=== PATIENT | female | born 1960 | race Caucasian/White ===

== ENCOUNTER 2021-03-24 20:30 | Inpatient (IN) ==
[2021-03-24] MEDS ORDERED: DEXAMETHASONE SOD INJ 4 MG/ML VIAL IV STA (20:58)
[2021-03-24 21:11] LABS: Basophils # (auto) 0.01 K/uL (0-0.2); Basophils % (auto) 0.2 %; Hematocrit (blood only) 42.1 % (37-47); Hemoglobin 14.5 g/dL (12.0-16.0); Immature Granulocytes # (auto) 0.07 K/uL (0.00-0.02); Immature Granulocytes % (auto) 1.1 %; Lymphocytes # (auto) 0.85 K/uL (1.2-3.4); Lymphocytes % (auto) 13.2 %; Mean Corpuscular Hemoglobin 30.5 pg (25-34); Mean Corpuscular Hgb Conc 34.4 g/dL (32-36); Mean Corpuscular Volume 88.4 fL (80-100); Mean Platelet Volume 10.1 fL (7.4-10.4); Monocytes # (auto) 0.73 K/uL (0.11-0.59); Monocytes % (auto) 11.4 %; Neutrophils # (auto) 4.77 K/uL (1.4-6.5); Neutrophils % (auto) 74.1 %; Platelet Count 266 K/uL (130-400); RDW Coefficient of Variation 13.9 % (11.5-14.5); RDW Standard Deviation 44.9 fL (36.4-46.3); Red Blood Count 4.76 M/uL (4.2-5.4); White Blood Count 6.43 K/uL (4.8-10.8)
[2021-03-24 21:21] LABS: Partial Thromboplastin Time 25.8 Seconds (21.0-31.0); Prothrombin Time 10.2 Seconds (9.0-12.0)
[2021-03-24 21:29] LABS: Alanine Aminotransferase 89 U/L (12-78); Albumin Level 2.9 gm/dl (3.4-5.0); Aspartate Aminotransferase 65 U/L (15-37); BUN Creatinine Ratio 20.7 (10-20); Blood Urea Nitrogen 16 mg/dl (7-18); Calcium 8.6 mg/dl (8.5-10.1); Carbon Dioxide 23 mmol/L (21-32); Chloride 108 mmol/L (98-107); Creatinine Clr Calc Pharmacy 94.9 ml/min; Est GFR (African American) 97.3 ml/min; Est GFR (Non-African American) 83.9 ml/min; Glucose 180 mg/dl (70-99); Magnesium 2.2 mg/dl (1.8-2.4); Potassium 3.6 mmol/L (3.5-5.1); Sodium 140 mmol/L (136-145)
[2021-03-24 21:34] LABS: Albumin Globulin Ratio 0.7 (0.9-2); Alkaline Phosphatase 99 U/L (45-117); Bilirubin,Total 0.4 mg/dl (0.2-1); Globulin 4.2 gm/dl (2.5-4.0); Total Protein 7.1 gm/dl (6.4-8.2); Troponin I < 0.015 ng/ml (0-0.045)
[2021-03-24] MEDS ORDERED: OPTIRAY 320 125ml IV ONE (22:57)
--- NOTE | 2021-03-24 23:38 | Emergency Department Note ---
History of Present Illness General Chief Complaint: Shortness of Breath/Dyspnea Time Seen by Provider: 03/24/21 20:51 History of Present Illness Provider Complaint: shortness of breath Onset (ago): day(s) (10) Severity: severe Maximum Pain Intensity: 3 Relieved By: + oxygen Exacerbated By: + coughing Context: + recent illness (Tested positive for Covid on March 14, 2021) Known history of: recurrent pneumonia Associated symptoms: + fever, + cough and + sputum production; no wheezing, no paresthesias, no hemoptysis, no nausea/vomiting or no abdominal pain Treatment prior to arrival: oxygen HPI Narrative: Patient states she was diagnosed positive for COVID-19 on March 14, 2021. Patient states she was recently cleared for the hospital and states she had a CAT scan chest x-ray done which showed pneumonia. She was started on doxycycline Decadron and discharge. She has been taking doxycycline and Decadron orally. Patient states today she is using her portable pulse oximeter and her oxygen saturation measured 84% when she was having difficulty breathing.EMS brought the patient and stated her pulse oximeter was 84% on their arrival and they started the patient on 15 L oxygen. Home Medications Medication Instructions Recorded Confirmed Type dexamethasone 6 mg tablet 6 mg PO DAILY 03/24/21 03/24/21 History doxycycline hyclate 100 mg capsule 100 mg PO BID 03/24/21 03/24/21 History hydrochlorothiazide 25 mg tablet 25 mg PO DAILY 03/24/21 03/24/21 History ondansetron 4 mg disintegrating 4 mg PO Q6H PRN 03/24/21 03/24/21 History tablet venlafaxine 50 mg tablet 25 mg PO DAILY 03/24/21 03/24/21 History Allergies Allergy/AdvReac Type Severity Reaction Status Date / Time No Known Allergies Allergy Verified 03/24/21 21:46 Past Med/Surg History Medical History COVID HTN (hypertension) No pertinent family history Surgical History No pertinent past surgical history Social History Smoking Status: Never smoker Feels Safe at Home: Yes Review of Systems A total of 10 systems reviewed and were otherwise negative Physical Exam Vital Signs: Vital Signs - 24 hr 03/24/21 20:14 03/24/21 20:58 03/24/21 21:00 Temperature 36.6 C Temperature Source Oral Pulse Rate 81 82 Pulse Rate from Sp O2 Sensor 82 Pulse Rhythm Regular Pulse Strength Normal Respiratory Rate 21 21 22 Respiratory Effort / Characteristics Non-Labored SOB on Exertion Spontaneous SOB on Exertion Respiratory Depth Normal Respiratory Patter n Regular Blood Pressure 171/98 H 184/102 H Blood Pressure Cassidy n 122 129 Blood Pressure Pos ition Lying Pulse Oximetry 95 95 97 Oxygen Delivery Me thod Room Air Nasal Can nula Nasal Cannula Oxygen Flow Rate 3 Sepsis Recent Feve r Within 48 Hours No Sepsis New/Unexpla ined Change in Men joan Status N/A Sepsis Action Take n by Nursing No Action Required 03/24/21 21:30 03/24/21 22:00 03/24/21 22:28 Temperature Temperature Source Pulse Rate 79 88 Pulse Rate from Sp O2 Sensor 79 89 Pulse Rhythm Pulse Strength Respiratory Rate 19 24 26 H Respiratory Effort / Characteristics Labored SOB on Exe rtion Respiratory Depth Respiratory Patter n Blood Pressure 200/99 H 210/137 H Blood Pressure Cassidy n 132 161 Blood Pressure Pos ition Pulse Oximetry 98 96 94 Oxygen Delivery Me thod Nasal Cannula Oxygen Flow Rate 3 Sepsis Recent Feve r Within 48 Hours Sepsis New/Unexpla ined Change in Men joan Status Sepsis Action Take n by Nursing 03/24/21 22:39 03/24/21 23:06 03/24/21 23:31 Temperature Temperature Source Pulse Rate 85 Pulse Rate from Sp O2 Sensor 85 84 78 Pulse Rhythm Pulse Strength Respiratory Rate 23 Respiratory Effort / Characteristics Respiratory Depth Respiratory Patter n Blood Pressure 168/88 H 160/84 H Blood Pressure Cassidy n 114 109 Blood Pressure Pos ition Pulse Oximetry 96 97 96 Oxygen Delivery Me thod Oxygen Flow Rate Sepsis Recent Feve r Within 48 Hours Sepsis New/Unexpla ined Change in Men joan Status Sepsis Action Take n by Nursing Physical Exam: Physical Exam HENT: Exam performed. -Head: Normocephalic and atraumatic. -Right Ear: External ear normal. No mastoid tenderness. -Left Ear: External ear normal. No mastoid tenderness. -Mouth/Throat: The oropharynx is clear and moist. No trismus in the jaw. No dental abscesses or uvula swelling. No oropharyngeal exudate or tonsillar abscesses. EYES: Conjunctivae and EOM are normal. Pupils are equal, round, and reactive to light. Right eye exhibits no discharge. Left eye exhibits no discharge. No scleral icterus. NECK: Normal range of motion. Neck supple. No JVD present. No spinous process tenderness present. No carotid bruit present. No rigidity. No tracheal deviation and normal range of motion present. No Brudzinski's sign and no Kernig's sign noted. CV: Normal rate, regular rhythm, normal heart sounds and intact distal pulses. There is no peripheral edema. Palpable radial pulses bue. PULM/CHEST: Rhonchi bilaterally. -Chest Wall: She exhibits no tenderness. ABD: The abdomen is soft. Bowel sounds are normal. She has no distension. No mass is present. There is no tenderness. There is no rebound, no guarding, no Dalal's sign and no tenderness at McBurney's point. Rovsig negative MUSC/SKEL: Normal range of motion. There is no peripheral edema, tenderness or deformity. LYMPH: No cervical adenopathy. NEURO: She is alert and oriented to person, place, and time. She has normal strength. No cranial nerve deficit or sensory deficit. Coordination and gait normal. GCS eye subscore is 4. GCS verbal subscore is 5. GCS motor subscore is 6. Cerebellar tests wnl. SKIN: Skin is warm and dry. She is not diaphoretic. PSYCH: She has a normal mood and affect. Behavior is normal. Judgment and thought content normal. Course Course 2050: The patient was evaluated in room B8. A complete history and physical exam was performed Cardiac monitoring: An order was placed for continuous cardiac monitoring. The monitor shows a rate of 80 with sinus rhythm Patient was hypoxic on room air. Patient started on supplemental oxygen via nasal cannula. Decadron 6 mg IV push was ordered for the patient given her hypoxia and Covid infection. 2340: Vital signs stable. Labs show a lactic acid of 2.9 and elevated liver enzymes. Patient is Covid positive. CT of the chest negative for PE and does show bilateral groundglass opacities. Given the patient's hypoxia while being on oral steroids and oral antibiotics, the patient will be admitted to the [facility] team. Administered Medications Discontinued Medications Dexamethasone (Dexamethasone Sod Inj 4 Mg/Ml Vial) 6 mg IV NOW STA Stop: 03/24/21 20:59 Last Admin: 03/24/21 22:28 Dose: 6 mg Documented by: [id number] Ioversol (Optiray 320 125ml) 118 ml IV ONCE ONE Stop: 03/24/21 22:58 Last Admin: 03/24/21 22:58 Dose: 118 ml Documented by: [id number] Medical Decision Making Laboratory Data Result diagrams: 03/24/21 20:50 03/24/21 20:50 Lab Results 03/24/21 03/24/21 03/24/21 Range/Units 20:50 20:50 20:50 WBC 6.43 (4.8-10.8) K/uL RBC 4.76 (4.2-5.4) M/uL Hgb 14.5 (12.0-16.0) g/dL Hct 42.1 (37-47) % MCV 88.4 (80-100) fL MCH 30.5 (25-34) pg MCHC 34.4 (32-36) g/dL RDW Std Deviation 44.9 (36.4-46.3) fL RDW Coeff of Lee 13.9 (11.5-14.5) % Plt Count 266 (130-400) K/uL MPV 10.1 (7.4-10.4) fL Immature Gran % (Auto) 1.1 % Neut % (Auto) 74.1 % Lymph % (Auto) 13.2 % [place] % (Auto) 11.4 % Eos % (Auto) 0.0 % Baso % (Auto) 0.2 % Neut # (Auto) 4.77 (1.4-6.5) K/uL Lymph # (Auto) 0.85 L (1.2-3.4) K/uL [place] # (Auto) 0.73 H (0.11-0.59) K/uL Eos # (Auto) 0.00 (0-0.5) K/uL Baso # (Auto) 0.01 (0-0.2) K/uL Immature Gran # (Auto) 0.07 H (0.00-0.02) K/uL PT 10.2 (9.0-12.0) Seconds INR 1.0 (0.9-1.1) APTT 25.8 (21.0-31.0) Seconds PTT Ratio 1.0 Sodium 140 (136-145) mmol/L Potassium 3.6 (3.5-5.1) mmol/L Chloride 108 H (98-107) mmol/L Carbon Dioxide 23 (21-32) mmol/L Anion Gap 9.0 (3-11) BUN 16 (7-18) mg/dl Creatinine 0.77 (0.6-1.2) mg/dl Est Cr Clr Drug Dosing 94.9 ml/min Est GFR ( Amer) 97.3 ml/min Est GFR (Non-Af Amer) 83.9 ml/min BUN/Creatinine Ratio 20.7 H (10-20) Glucose 180 H (70-99) mg/dl Lactate (0.4-2.0) mmol/L Calcium 8.6 (8.5-10.1) mg/dl Magnesium 2.2 (1.8-2.4) mg/dl Total Bilirubin 0.4 (0.2-1) mg/dl AST 65 H (15-37) U/L ALT 89 H (12-78) U/L Alkaline Phosphatase 99 (45-117) U/L Troponin I < 0.015 (0-0.045) ng/ml Total Protein 7.1 (6.4-8.2) gm/dl Albumin 2.9 L (3.4-5.0) gm/dl Globulin 4.2 H (2.5-4.0) gm/dl Albumin/Globulin Ratio 0.7 L (0.9-2) Procalcitonin (0-0.5) ng/ml COVID-19 Eval Order SARS-CoV-2 (PCR) (Negative) 03/24/21 03/24/21 03/24/21 Range/Units 20:50 22:31 22:31 WBC (4.8-10.8) K/uL RBC (4.2-5.4) M/uL Hgb (12.0-16.0) g/dL Hct (37-47) % MCV (80-100) fL MCH (25-34) pg MCHC (32-36) g/dL RDW Std Deviation (36.4-46.3) fL RDW Coeff of Lee (11.5-14.5) % Plt Count (130-400) K/uL MPV (7.4-10.4) fL Immature Gran % (Auto) % Neut % (Auto) % Lymph % (Auto) % [place] % (Auto) % Eos % (Auto) % Baso % (Auto) % Neut # (Auto) (1.4-6.5) K/uL Lymph # (Auto) (1.2-3.4) K/uL [place] # (Auto) (0.11-0.59) K/uL Eos # (Auto) (0-0.5) K/uL Baso # (Auto) (0-0.2) K/uL Immature Gran # (Auto) (0.00-0.02) K/uL PT (9.0-12.0) Seconds INR (0.9-1.1) APTT (21.0-31.0) Seconds PTT Ratio Sodium (136-145) mmol/L Potassium (3.5-5.1) mmol/L Chloride (98-107) mmol/L Carbon Dioxide (21-32) mmol/L Anion Gap (3-11) BUN (7-18) mg/dl Creatinine (0.6-1.2) mg/dl Est Cr Clr Drug Dosing ml/min Est GFR ( Amer) ml/min Est GFR (Non-Af Amer) ml/min BUN/Creatinine Ratio (10-20) Glucose (70-99) mg/dl Lactate (0.4-2.0) mmol/L Calcium (8.5-10.1) mg/dl Magnesium (1.8-2.4) mg/dl Total Bilirubin (0.2-1) mg/dl AST (15-37) U/L ALT (12-78) U/L Alkaline Phosphatase (45-117) U/L Troponin I (0-0.045) ng/ml Total Protein (6.4-8.2) gm/dl Albumin (3.4-5.0) gm/dl Globulin (2.5-4.0) gm/dl Albumin/Globulin Ratio (0.9-2) Procalcitonin < 0.05 (0-0.5) ng/ml COVID-19 Eval Order Covid19 at [facility] SARS-CoV-2 (PCR) POSITIVE A* (Negative) 03/24/21 Range/Units 22:34 WBC (4.8-10.8) K/uL RBC (4.2-5.4) M/uL Hgb (12.0-16.0) g/dL Hct (37-47) % MCV (80-100) fL MCH (25-34) pg MCHC (32-36) g/dL RDW Std Deviation (36.4-46.3) fL RDW Coeff of Lee (11.5-14.5) % Plt Count (130-400) K/uL MPV (7.4-10.4) fL Immature Gran % (Auto) % Neut % (Auto) % Lymph % (Auto) % [place] % (Auto) % Eos % (Auto) % Baso % (Auto) % Neut # (Auto) (1.4-6.5) K/uL Lymph # (Auto) (1.2-3.4) K/uL [place] # (Auto) (0.11-0.59) K/uL Eos # (Auto) (0-0.5) K/uL Baso # (Auto) (0-0.2) K/uL Immature Gran # (Auto) (0.00-0.02) K/uL PT (9.0-12.0) Seconds INR (0.9-1.1) APTT (21.0-31.0) Seconds PTT Ratio Sodium (136-145) mmol/L Potassium (3.5-5.1) mmol/L Chloride (98-107) mmol/L Carbon Dioxide (21-32) mmol/L Anion Gap (3-11) BUN (7-18) mg/dl Creatinine (0.6-1.2) mg/dl Est Cr Clr Drug Dosing ml/min Est GFR ( Amer) ml/min Est GFR (Non-Af Amer) ml/min BUN/Creatinine Ratio (10-20) Glucose (70-99) mg/dl Lactate 2.9 H* (0.4-2.0) mmol/L Calcium (8.5-10.1) mg/dl Magnesium (1.8-2.4) mg/dl Total Bilirubin (0.2-1) mg/dl AST (15-37) U/L ALT (12-78) U/L Alkaline Phosphatase (45-117) U/L Troponin I (0-0.045) ng/ml Total Protein (6.4-8.2) gm/dl Albumin (3.4-5.0) gm/dl Globulin (2.5-4.0) gm/dl Albumin/Globulin Ratio (0.9-2) Procalcitonin (0-0.5) ng/ml COVID-19 Eval Order SARS-CoV-2 (PCR) (Negative) Imaging Data Radiologist's Impression: PreliminaryFindingsOnly See Final Report For Complete Findings CTACHEST: The pulmonaryarterial tree iswell-opacified with contrast. No pulmonaryemboli are identified. The thoracic aorta is mildlycalcified but nondilated. There is no aneurysmor dissection. Mild to moderate scattered rounded groundglass infiltrates throughout both lungs characteristic of Covid 19 pneumonia. No pneumothorax or pleural effusion is seen. Fattyinfiltration of the liver. Radiologist: Soy Hyatt MD Study ready at 23:11 and initial results transmitted at 23:33 ECG Data Interpretation: Sinus rhythm with rate of 85. MA QRS and QTc intervals are within normal limits. No ST elevation or ST depression. [facility] Narrative 2050: The patient was evaluated in room B8. A complete history and physical exam was performed Cardiac monitoring: An order was placed for continuous cardiac monitoring. The monitor shows a rate of 80 with sinus rhythm Patient was hypoxic on room air. Patient started on supplemental oxygen via nasal cannula. Decadron 6 mg IV push was ordered for the patient given her hypoxia and Covid infection. 2340: Vital signs stable. Labs show a lactic acid of 2.9 and elevated liver enzymes. Patient is Covid positive. CT of the chest negative for PE and does show bilateral groundglass opacities. Given the patient's hypoxia while being on oral steroids and oral antibiotics, the patient will be admitted to the hospitalist team. Impression & Plan Pneumonia due to Discharge Plan Visit Data Chief Complaint: Shortness of Breath/Dyspnea ED Provider: Roberto Roldan Discharge Problem: Pneumonia due to 2018- Patient Disposition: Admitted As Inpatient Forms Stand Alone Forms: [facility] Prescriptions Prescriptions: No Action doxycycline hyclate 100 mg capsule 100 mg PO BID RF: 0 dexamethasone 6 mg tablet 6 mg PO DAILY RF: 0 venlafaxine 50 mg tablet 25 mg PO DAILY RF: 0 hydrochlorothiazide 25 mg tablet 25 mg PO DAILY RF: 0 ondansetron 4 mg tablet,disintegrating 4 mg PO Q6H PRN (Reason: Nausea) RF: 0 Referrals Referrals: Tyrell Castañeda MD [Primary Care Provider] -
[2021-03-25] MEDS ORDERED: REMDESIVIR 200 MG in SODIUM CHLORIDE 0.9% 210 ML IV STA (01:56)
[2021-03-25] MEDS ORDERED: ACETAMINOPHEN 325 MG TAB PO PRN (03:21)
[2021-03-25] MEDS ORDERED: ONDANSETRON INJ 2 MG/ML 2 ML VIAL IV PRN (03:21)
[2021-03-25] MEDS ORDERED: NITROGLYCERIN SL 0.4 MG/TAB TAB SL PRN (03:21)
[2021-03-25] MEDS ORDERED: SODIUM CHLORIDE 0.9% 1000ML 1,000 ML IV SCH (03:40)
[2021-03-25] MEDS: ENOXAPARIN INJ 40 MG/0.4 ML SYR SQ SCH ×2 (06:10→17:49)
[2021-03-25 06:28] LABS: Basophils # (auto) 0.01 K/uL (0-0.2); Basophils % (auto) 0.2 %; Hematocrit (blood only) 41.2 % (37-47); Hemoglobin 13.7 g/dL (12.0-16.0); Immature Granulocytes # (auto) 0.08 K/uL (0.00-0.02); Immature Granulocytes % (auto) 1.2 %; Lymphocytes # (auto) 0.87 K/uL (1.2-3.4); Lymphocytes % (auto) 13.3 %; Mean Corpuscular Hemoglobin 29.7 pg (25-34); Mean Corpuscular Hgb Conc 33.3 g/dL (32-36); Mean Corpuscular Volume 89.4 fL (80-100); Mean Platelet Volume 10.1 fL (7.4-10.4); Monocytes # (auto) 0.56 K/uL (0.11-0.59); Monocytes % (auto) 8.5 %; Neutrophils # (auto) 5.03 K/uL (1.4-6.5); Neutrophils % (auto) 76.8 %; Platelet Count 266 K/uL (130-400); RDW Coefficient of Variation 13.9 % (11.5-14.5); RDW Standard Deviation 45.7 fL (36.4-46.3); Red Blood Count 4.61 M/uL (4.2-5.4); White Blood Count 6.55 K/uL (4.8-10.8)
[2021-03-25 06:53] LABS: Appearance Urine Clear (Clear); Bacteria Urine Automated Negative (Negative); Bilirubin Urine Negative (Negative); Blood Urine Trace (Negative); Cast Urine Automated 0 /lpf (0-5); Color Urine Yellow; Glucose Urine UA Negative (Negative); Ketones Urine Negative (Negative); Leukocyte Esterase Urine Negative (Negative); Nitrite Urine Negative (Negative); Protein Urine 2+ (Negative); Specific Gravity Urine > 1.045 (1.000-1.030); Urobilinogen Urine Negative (Negative)
[2021-03-25 06:57] LABS: Alanine Aminotransferase 78 U/L (12-78); Albumin Level 2.6 gm/dl (3.4-5.0); Aspartate Aminotransferase 51 U/L (15-37); BUN Creatinine Ratio 19.9 (10-20); Bilirubin Direct < 0.1 mg/dl (0-0.2); Blood Urea Nitrogen 15 mg/dl (7-18); Calcium 8.2 mg/dl (8.5-10.1); Carbon Dioxide 23 mmol/L (21-32); Chloride 109 mmol/L (98-107); Creatinine Clr Calc Pharmacy 91.1 ml/min; Est GFR (African American) 97.3 ml/min; Est GFR (Non-African American) 83.9 ml/min; Glucose 194 mg/dl (70-99); Magnesium 2.2 mg/dl (1.8-2.4); Potassium 3.6 mmol/L (3.5-5.1); Sodium 140 mmol/L (136-145)
--- NOTE | 2021-03-25 06:59 | History and Physical Report ---
DATE OF ADMISSION: 03/25/2021. CHIEF COMPLAINT: Shortness of breath. HISTORY OF PRESENT ILLNESS: A 60-year-old female with past medical history significant for irritable bowel syndrome, slow transit constipation, history of uterine leiomyoma, calculus of kidney, osteoarthritis, pelvic endometriosis, migraines, anxiety, comes because of shortness of breath. The patient says she has symptoms of not feeling well and fever on 03/13/2021 and 03/14/2021 she was checked and COVID came back positive. Whole of one week, she had constant fevers and she has had cough. Appetite is down. Loss of sense of smell and taste, feeling weak and she was feeling short of breath last Monday and she went to [place] [facility] and she was given Decadron and discharged home. She was checking pulse ox at home and yesterday she was feeling short of breath when going to the bathroom and coming back and pulse ox was getting 84% and she came to the hospital. Currently on 3 liters, she is saturating fine. She seems to be bringing brownish and reddish phlegm. Denies any chest pain. She has pain in the chest when she coughs. Initially, she had a headache but her headache has resolved. No blurred visions, no earache, no runny nose, no sore throat, no difficulty swallowing. No nausea. She has diarrhea that is getting better. No abdominal pain currently. Urine is dark. No swelling in the legs. She has not been vaccinated for COVID. ALLERGIES: No known drug allergies. PAST MEDICAL HISTORY: As mentioned above. PAST SURGICAL HISTORY: , colonoscopy, lithotripsy, ligation of oviduct. MEDICATIONS: The patient is on hydrochlorothiazide 25 mg p.o. daily, venlafaxine 25 mg p.o. daily, Zofran 4 mg p.o. q. 6 hours p.r.n., doxycycline 100 mg p.o. b.i.d., dexamethasone 6 mg p.o. daily. FAMILY HISTORY: Significant for mother has asthma, diabetes. Father has bladder cancer, bone cancer, hyperlipidemia, hypertension. SOCIAL HISTORY: . Smoking, quit in April 2001. Prior to that smoked half pack a day for 20 years. No alcohol use. No drug use. REVIEW OF SYSTEMS: As per HPI. Rest of the review of systems is negative. PHYSICAL EXAMINATION: GENERAL: The patient is obese, not in acute distress currently. VITAL SIGNS: Temperature 36.7, pulse 85, respiratory rate 20, blood pressure 158/76, oxygen 96% on 3 liters. HEENT: Pupils equal, round and reactive to light. Oral mucosa dry. NECK: No JVD or neck masses. CARDIOVASCULAR: S1 and S2 heard. Regular rate and rhythm. No murmur, no gallop. RESPIRATORY SYSTEM: Normal AP diameter. No accessory muscle use. No wheezing, no crackles. ABDOMEN: Soft, bowel sounds present, nontender, no distention. CENTRAL NERVOUS SYSTEM: Cranial nerves II-XII grossly intact, nonfocal. EXTREMITIES: Mild pedal edema, no erythema seen. LABORATORY DATA: WBC 6.4, hemoglobin 14.5, hematocrit 42.1, platelets 266. PT 10.2, INR 1, APTT 25.8. Sodium 140, potassium 3.6, chloride 108, bicarbonate 23, BUN 16, creatinine 0.7, serum glucose 180, lactate 1.8, calcium 8.6, magnesium 2.2, AST 65, ALT 89, alkaline phosphatase 99. Troponin I less than 0.015. Procalcitonin less than 0.05. SARS-CoV-2 PCR positive. IMAGING DATA: Chest x-ray, CTA of the chest, no PE, but showed multifocal pneumonia. ASSESSMENT AND PLAN: This is a 60-year-old female who presents with COVID pneumonia. 1. COVID pneumonia. Covid diagnosed on 03/14/2021, currently requiring 3 liters of oxygen. She was in [place] ER on Monday and started on Decadron, but got worse after going home. Though she is close to around 10 days of starting of symptoms, we will start her on remdesivir and Decadron and follow the CRP levels in a.m. Closely monitor in the tele floor. 2. History of hypertension. Continue hydrochlorothiazide. Monitor the blood pressure. 3. History of anxiety and depression. Continue her venlafaxine. 4. Deep venous thrombosis prophylaxis: Lovenox. DISPOSITION: Closely monitor in the tele floor. Level 1 full code. Expect to discharge home and follow with family doctor. Job ID: [id number] [facility]
[2021-03-25 07:00] LABS: Alkaline Phosphatase 92 U/L (45-117); Bilirubin,Total 0.4 mg/dl (0.2-1); Total Protein 6.6 gm/dl (6.4-8.2)
--- NOTE | 2021-03-25 07:49 | XRay Report ---
XR chest 1V portable CLINICAL HISTORY: SEPSIS COMPARISON STUDY: No previous studies for comparison. FINDINGS: Lung volumes are normal. Note is made of moderate multifocal airspace opacities within the lungs. There is no pneumothorax or pleural effusion. Cardiac size is normal. Mediastinal contours are normal. There is no evidence for pulmonary edema. IMPRESSION: Moderate multifocal airspace opacities within the lungs suggestive of viral pneumonia. ACT 112: Negative or not required by law. Electronically signed by: Kei Cook M.D. 03/25/2021 7:48 AM
--- NOTE | 2021-03-25 08:00 | CT Scan Report ---
CT ANGIOGRAM OF THE CHEST CLINICAL HISTORY: Dyspnea. COMPARISON STUDY: Chest x-ray dated 03/24/2021. TECHNIQUE: Following the IV administration of 118 cc of Optiray 320, CT angiogram of the chest was pe rformed from the upper abdomen to the thoracic inlet utilizing the pulmonary embolus protocol. Images are reviewed in the axial, sagittal, and coronal planes. 3-D MIPS images are created and assessed. I V contrast was administered without complication. A dose lowering technique was utilized adhering to the principles of ALARA. CT DOSE: 551.98 mGy.cm FINDINGS: Thyroid: Imaged portions of the thyroid gland are normal in size and attenuation. Thoracic aorta: The thoracic aorta is normal in caliber and demonstrates standard 3-vessel arch anato my. No dissection is seen. Pulmonary vasculature: The pulmonary trunk is normal in caliber. There are no filling defects identif ied in main, lobar, or segmental pulmonary branches to suggest pulmonary embolus. Heart: The heart is normal in size and without pericardial effusion. Lungs and pleural spaces: Multifocal groundglass consolidation is seen throughout both lungs with a l ower lobe and subpleural predominance. There is no pleural effusion. The trachea and central airways are clear. Mediastinum: There is no mediastinal lymphadenopathy. [place]: Prominent hilar nodes measure up to 10 mm in short axis. These are likely reactive. Axillae: There is no axillary lymphadenopathy. Upper abdomen: The liver is steatotic. A small hiatal hernia is noted. Skeletal structures: No lytic or blastic bony lesions are seen. IMPRESSION: 1. There is no evidence of pulmonary embolus in the main, lobar, or segmental pulmonary arteries. 2. Multifocal airspace consolidation is typical for pneumonia. Clinical correlation will be required and radiographic follow-up to resolution is recommended. 3. Hepatic steatosis. ACT 112: Negative or not required by law. Electronically signed by: Luis M Barksdale M.D. 03/25/2021 7:58 AM
[2021-03-25] MEDS: hydroCHLOROthiazide 25 MG TAB PO SCH (08:45)
[2021-03-25] MEDS: VENLAFAXINE HCL 50 MG TAB PO SCH (08:45)
[2021-03-25] MEDS: dexAMETHasone 6 MG in SYRINGE 0 ML IV SCH (08:45)
[2021-03-25] MEDS: DOXYCYCLINE HYCLATE 100 MG CAP PO SCH ×2 (08:45→20:14)
--- NOTE | 2021-03-25 14:50 | Communication Note ---
Date of Service: March 25, 2021 Patient seen and examined History and exam as detailed in H&P from this morning Patient has no new complaints. Agree with care as detailed in H&P
[2021-03-25] MEDS: REMDESIVIR 100 MG in SODIUM CHLORIDE 0.9% 230 ML IV SCH (20:17)
[2021-03-25] MEDS: SODIUM CHLORIDE 0.9% 10ML FLUSH IV SCH (21:20)
[2021-03-25] MEDS: hydrALAZINE HCL 20 MG/ML VIAL IV PRN (23:26)
[2021-03-26] MEDS: ENOXAPARIN INJ 40 MG/0.4 ML SYR SQ SCH ×2 (05:10→17:53)
--- NOTE | 2021-03-26 05:54 | Electrocardiogram Report ---
Test Reason : Blood Pressure : / mmHG Vent. Rate : 085 BPM Atrial Rate : 085 BPM P-R Int : 144 ms QRS Dur : 086 ms QT Int : 368 ms P-R-T Axes : 064 -06 029 degrees QTc Int : 437 ms Normal sinus rhythm Minimal voltage criteria for LVH, may be normal variant Borderline ECG No previous ECGs available Confirmed by Joey Brown ([id number]) on 03/26/2021 5:53:53 AM Referred By: REFERRED SELF Confirmed By:Joey Brown
[2021-03-26] MEDS: hydrALAZINE HCL 20 MG/ML VIAL IV PRN (06:00)
[2021-03-26 06:56] LABS: Hematocrit (blood only) 42.8 % (37-47); Hemoglobin 14.8 g/dL (12.0-16.0); Mean Corpuscular Hemoglobin 30.6 pg (25-34); Mean Corpuscular Hgb Conc 34.6 g/dL (32-36); Mean Corpuscular Volume 88.6 fL (80-100); Mean Platelet Volume 9.9 fL (7.4-10.4); Platelet Count 317 K/uL (130-400); RDW Coefficient of Variation 13.6 % (11.5-14.5); RDW Standard Deviation 44.6 fL (36.4-46.3); Red Blood Count 4.83 M/uL (4.2-5.4); White Blood Count 7.84 K/uL (4.8-10.8)
[2021-03-26 07:36] LABS: BUN Creatinine Ratio 30.1 (10-20); C Reactive Protein 0.68 mg/dl (0-0.29); Calcium 8.4 mg/dl (8.5-10.1); Est GFR (African American) 117.5 ml/min; Est GFR (Non-African American) 101.3 ml/min; Potassium 3.4 mmol/L (3.5-5.1)
[2021-03-26 08:01] LABS: D Dimer 320 ug/L FEU (0-500)
[2021-03-26] MEDS: dexAMETHasone 6 MG in SYRINGE 0 ML IV SCH (08:07)
[2021-03-26] MEDS: DOXYCYCLINE HYCLATE 100 MG CAP PO SCH ×2 (08:07→19:54)
[2021-03-26] MEDS: hydroCHLOROthiazide 25 MG TAB PO SCH (08:07)
[2021-03-26] MEDS: VENLAFAXINE HCL 50 MG TAB PO SCH (08:07)
[2021-03-26] MEDS ORDERED: POTASSIUM CHLORIDE CRTAB 20 MEQ TABCR PO STA (08:08)
--- NOTE | 2021-03-26 13:14 | Hospitalist Progress Note ---
Date of Service March 26, 2021 Assessment & Plan (1) Acute respiratory failure with hypoxia: (2) Pneumonia due to 2019-nCoV: (3) HTN (hypertension): Plan: Continue oxygen supplementation Continue incentive spirometry and flutter Continue dexamethasone and remdesivir. Wean oxygen as tolerated Educated on self proning Continue home hydrochlorothiazide for hypertension. Continue home venlafaxine for anxiety. Lovenox subcu for DVT prophylaxis Admission and Anticipated Discharge Date Admission Date: March 25, 2021 Subjective 60-year-old woman with history of irritable bowel syndrome, uterine leiomyoma, kidney stone, osteoarthritis, pelvic endometriosis, migraines, anxiety presented with cough and shortness of breath. Being managed for acute hypoxic respiratory failure due to COVID-19 pneumonia. Patient seen and examined this morning. Still reporting cough and shortness of breath. Reports fatigue, loss of taste and poor appetite Denies any nausea, vomiting, abdominal pain or diarrhea. Denies chest pain Review of Systems Review of Systems: Other review of system negative except as above Physical Exam Constitutional: + well hydrated and + obese; no acute distress Eyes: PERRL, conjunctivae normal, anicteric sclerae ENMT: external ear and nose normal, oropharynx normal Respiratory: normal respiratory effort; no respiratory distress Auscultation: + diminished lung sounds On 2l/min nasal oxygen Cardiovascular: Rate/Rhythm: regular rate and regular rhythm S1 S2 Gastrointestinal (Abdomen): normal bowel sounds, soft, nontender, no hepatosplenomegaly Musculoskeletal: no cyanosis or clubbing, extremities motor strength 5/5 Neurologic: PERRL, EOMI, accommodation nl, no face palsy, no dysarthria Psychiatric: A+Ox3, euthymic affect Results & Data Results & Data ([facility]) Vital Signs (Past 12 Hours) Vital Signs Temp Pulse Pulse Resp BP Pulse Ox 03/26/21 11:56 36.8 C 96 H 16 146/89 H 92 03/26/21 07:36 36.5 C 89 19 126/71 93 03/26/21 07:26 87 03/26/21 07:00 140/81 03/26/21 06:00 176/103 H 03/26/21 05:09 169/109 H 03/26/21 04:07 169/106 H 03/26/21 03:38 170/92 H 03/26/21 03:21 36.7 C 82 20 176/94 H 96 Laboratory Results Abnormal lab results 03/26/21 Range/Units 06:37 Potassium 3.4 L (3.5-5.1) mmol/L Creatinine 0.56 L (0.6-1.2) mg/dl BUN/Creatinine Ratio 30.1 H (10-20) Glucose 151 H (70-99) mg/dl Calcium 8.4 L (8.5-10.1) mg/dl AST 39 H (15-37) U/L C-Reactive Protein 0.68 H (0-0.29) mg/dl
[2021-03-26] MEDS: REMDESIVIR 100 MG in SODIUM CHLORIDE 0.9% 230 ML IV SCH (19:54)
[2021-03-26] MEDS: SODIUM CHLORIDE 0.9% 10ML FLUSH IV SCH (20:54)
[2021-03-27] MEDS: ENOXAPARIN INJ 40 MG/0.4 ML SYR SQ SCH ×2 (05:55→17:43)
[2021-03-27 06:33] LABS: Hematocrit (blood only) 44.5 % (37-47); Hemoglobin 15.2 g/dL (12.0-16.0); Mean Corpuscular Hemoglobin 30.3 pg (25-34); Mean Corpuscular Hgb Conc 34.2 g/dL (32-36); Mean Corpuscular Volume 88.8 fL (80-100); Mean Platelet Volume 10.1 fL (7.4-10.4); Platelet Count 356 K/uL (130-400); RDW Coefficient of Variation 13.4 % (11.5-14.5); RDW Standard Deviation 44.1 fL (36.4-46.3); Red Blood Count 5.01 M/uL (4.2-5.4); White Blood Count 7.98 K/uL (4.8-10.8)
[2021-03-27 07:09] LABS: Albumin Level 2.8 gm/dl (3.4-5.0); BUN Creatinine Ratio 28.4 (10-20); Calcium 8.4 mg/dl (8.5-10.1); Creatinine Clr Calc Pharmacy 102.8 ml/min; Est GFR (African American) 110.2 ml/min; Est GFR (Non-African American) 95.1 ml/min; Potassium 3.7 mmol/L (3.5-5.1)
[2021-03-27 07:11] LABS: Albumin Globulin Ratio 0.7 (0.9-2); Bilirubin,Total 0.5 mg/dl (0.2-1); C Reactive Protein 0.44 mg/dl (0-0.29); Globulin 3.8 gm/dl (2.5-4.0); Total Protein 6.6 gm/dl (6.4-8.2)
[2021-03-27] MEDS: DOXYCYCLINE HYCLATE 100 MG CAP PO SCH ×2 (07:58→19:39)
[2021-03-27] MEDS: hydroCHLOROthiazide 25 MG TAB PO SCH (07:58)
[2021-03-27] MEDS: VENLAFAXINE HCL 50 MG TAB PO SCH (07:58)
[2021-03-27] MEDS: dexAMETHasone 6 MG in SYRINGE 0 ML IV SCH (07:59)
--- NOTE | 2021-03-27 12:06 | Hospitalist Progress Note ---
Date of Service March 27, 2021 Assessment & Plan (1) Acute respiratory failure with hypoxia: (2) Pneumonia due to 2019-nCoV: (3) HTN (hypertension): Plan: Patient just taken off oxygen and saturating 92% on room air Continue incentive spirometry and flutter Continue dexamethasone and remdesivir day 4 Continue self proning Continue home hydrochlorothiazide for hypertension. Continue home venlafaxine for anxiety. Lovenox subcu for DVT prophylaxis Admission and Anticipated Discharge Date Admission Date: March 25, 2021 Subjective 60-year-old woman with history of irritable bowel syndrome, uterine leiomyoma, kidney stone, osteoarthritis, pelvic endometriosis, migraines, anxiety presented with cough and shortness of breath. Being managed for acute hypoxic respiratory failure due to COVID-19 pneumonia. Patient seen and examined this morning. Reports cough and shortness of breath improving. Reports fatigue, loss of taste and poor appetite much improved Denies any nausea, vomiting, abdominal pain or diarrhea. Denies chest pain Review of Systems Review of Systems: Other review of system negative except as above Physical Exam Constitutional: + well hydrated and + obese; no acute distress Eyes: PERRL, conjunctivae normal, anicteric sclerae ENMT: external ear and nose normal, oropharynx normal Respiratory: normal respiratory effort; no respiratory distress Auscultation: + diminished lung sounds Cardiovascular: Rate/Rhythm: regular rate and regular rhythm S1 S2 Gastrointestinal (Abdomen): normal bowel sounds, soft, nontender, no hepatosplenomegaly Musculoskeletal: no cyanosis or clubbing, extremities motor strength 5/5 Neurologic: PERRL, EOMI, accommodation nl, no face palsy, no dysarthria Psychiatric: A+Ox3, euthymic affect Results & Data Results & Data ([facility]) Vital Signs (Past 12 Hours) Vital Signs Temp Pulse Pulse Resp BP BP Pulse Ox 03/27/21 11:31 36.7 C 94 H 18 129/68 92 03/27/21 07:24 75 03/27/21 07:17 36.7 C 91 H 19 139/73 91 03/27/21 05:55 96 03/27/21 03:47 36.5 C 88 18 141/89 H 95 Laboratory Results Abnormal lab results 03/27/21 Range/Units 06:11 BUN 19 H (7-18) mg/dl BUN/Creatinine Ratio 28.4 H (10-20) Glucose 140 H (70-99) mg/dl Calcium 8.4 L (8.5-10.1) mg/dl C-Reactive Protein 0.44 H (0-0.29) mg/dl Albumin 2.8 L (3.4-5.0) gm/dl Albumin/Globulin Ratio 0.7 L (0.9-2)
[2021-03-27] MEDS: REMDESIVIR 100 MG in SODIUM CHLORIDE 0.9% 230 ML IV SCH (19:39)
[2021-03-27] MEDS: SODIUM CHLORIDE 0.9% 10ML FLUSH IV SCH (22:19)
[2021-03-28] MEDS: ENOXAPARIN INJ 40 MG/0.4 ML SYR SQ SCH (05:56)
[2021-03-28 06:58] LABS: Hematocrit (blood only) 43.2 % (37-47); Hemoglobin 15.1 g/dL (12.0-16.0); Mean Corpuscular Hemoglobin 30.1 pg (25-34); Mean Corpuscular Volume 86.2 fL (80-100); Mean Platelet Volume 10.1 fL (7.4-10.4); Platelet Count 325 K/uL (130-400); RDW Coefficient of Variation 13.2 % (11.5-14.5); RDW Standard Deviation 41.6 fL (36.4-46.3); Red Blood Count 5.01 M/uL (4.2-5.4); White Blood Count 8.95 K/uL (4.8-10.8)
[2021-03-28 07:18] LABS: Albumin Level 2.7 gm/dl (3.4-5.0); BUN Creatinine Ratio 30.4 (10-20); Calcium 8.4 mg/dl (8.5-10.1); Creatinine Clr Calc Pharmacy 101.8 ml/min; Est GFR (African American) 110.2 ml/min; Est GFR (Non-African American) 95.1 ml/min; Potassium 3.8 mmol/L (3.5-5.1)
[2021-03-28 07:21] LABS: Albumin Globulin Ratio 0.8 (0.9-2); Bilirubin,Total 0.5 mg/dl (0.2-1); C Reactive Protein 0.3 mg/dl (0-0.29); Globulin 3.6 gm/dl (2.5-4.0); Total Protein 6.3 gm/dl (6.4-8.2)
[2021-03-28] MEDS: DOXYCYCLINE HYCLATE 100 MG CAP PO SCH (07:27)
[2021-03-28] MEDS: hydroCHLOROthiazide 25 MG TAB PO SCH (07:27)
[2021-03-28] MEDS: VENLAFAXINE HCL 50 MG TAB PO SCH (07:27)
[2021-03-28] MEDS: dexAMETHasone 6 MG in SYRINGE 0 ML IV SCH (07:27)
--- NOTE | 2021-03-28 10:48 | Discharge Summary ---
Date of Service March 28, 2021 Admission HPI Per Admitting Provider 60-year-old female with past medical history significant for irritable bowel syndrome, slow transit constipation, history of uterine leiomyoma, calculus of kidney, osteoarthritis, pelvic endometriosis, migraines, anxiety, comes because of shortness of breath. The patient says she has symptoms of not feeling well and fever on 03/13/2021 and 03/14/2021 she was checked and COVID came back positive. Whole of one week, she had constant fevers and she has had cough. Appetite is down. Loss of sense of smell and taste, feeling weak and she was feeling short of breath last Monday and she went to [facility] and she was given Decadron and discharged home. She was checking pulse ox at home and yesterday she was feeling short of breath when going to the bathroom and coming back and pulse ox was getting 84% and she came to the hospital. Currently on 3 liters, she is saturating fine. She seems to be bringing brownish and reddish phlegm. Denies any chest pain. She has pain in the chest when she coughs. Initially, she had a headache but her headache has resolved. No blurred visions, no earache, no runny nose, no sore throat, no difficulty swallowing. No nausea. She has diarrhea that is getting better. No abdominal pain currently. Urine is dark. No swelling in the legs. She has not been vaccinated for COVID. Admission Exam Per Admitting Provider GENERAL: The patient is obese, not in acute distress currently. VITAL SIGNS: Temperature 36.7, pulse 85, respiratory rate 20, blood pressure 158/76, oxygen 96% on 3 liters. HEENT: Pupils equal, round and reactive to light. Oral mucosa dry. NECK: No JVD or neck masses. CARDIOVASCULAR: S1 and S2 heard. Regular rate and rhythm. No murmur, no gallop. RESPIRATORY SYSTEM: Normal AP diameter. No accessory muscle use. No wheezing, no crackles. ABDOMEN: Soft, bowel sounds present, nontender, no distention. CENTRAL NERVOUS SYSTEM: Cranial nerves II-XII grossly intact, nonfocal. EXTREMITIES: Mild pedal edema, no erythema seen Principal Diagnosis Acute hypoxic respiratory failure COVID 19 pneumonia Discharge Exam Constitutional + well hydrated and + obese; no acute distress Eyes PERRL, conjunctivae normal, anicteric sclerae ENMT external ear and nose normal, oropharynx normal Respiratory normal respiratory effort; no respiratory distress Auscultation: + diminished lung sounds Cardiovascular Rate/Rhythm: regular rate and regular rhythm S1 S2 Gastrointestinal (Abdomen) normal bowel sounds, soft, nontender, no hepatosplenomegaly Musculoskeletal no cyanosis or clubbing, extremities motor strength 5/5 Neurologic PERRL, EOMI, accommodation nl, no face palsy, no dysarthria Psychiatric A+Ox3, euthymic affect Discharge Data Allergies Allergy/AdvReac Type Severity Reaction Status Date / Time No Known Allergies Allergy Verified 03/24/21 21:46 Consultations 03/24/21 23:45 ED Decision to Admit Stat Ordered Studies 03/24/21 20:59 CT angio chest PE protocol Urgent Thyroid: Imaged portions of the thyroid gland are normal in size and attenuation. Thoracic aorta: The thoracic aorta is normal in caliber and demonstrates standard 3-vessel arch anatomy. No dissection is seen. Pulmonary vasculature: The pulmonary trunk is normal in caliber. There are no filling defects identified in main, lobar, or segmental pulmonary branches to suggest pulmonary embolus. Heart: The heart is normal in size and without pericardial effusion. Lungs and pleural spaces: Multifocal groundglass consolidation is seen throughout both lungs with a lower lobe and subpleural predominance. There is no pleural effusion. The trachea and central airways are clear. Mediastinum: There is no mediastinal lymphadenopathy. Maribeth: Prominent hilar nodes measure up to 10 mm in short axis. These are likely reactive. Axillae: There is no axillary lymphadenopathy. Upper abdomen: The liver is steatotic. A small hiatal hernia is noted. Skeletal structures: No lytic or blastic bony lesions are seen. IMPRESSION: 1. There is no evidence of pulmonary embolus in the main, lobar, or segmental pulmonary arteries. 2. Multifocal airspace consolidation is typical for pneumonia. Clinical correlation will be required and radiographic follow-up to resolution is recommended. 3. Hepatic steatosis. Hospital Course (1) Acute respiratory failure with hypoxia: (2) Pneumonia due to 2019-nCoV: (3) HTN (hypertension): Patient was admitted to the hospital Was requiring oxygen initially Was treated with dexamethasone and remdesivir. Was managed with supportive care, incentive spirometry, flutter, self proning Patient's symptoms improved significantly. She was weaned off oxygen. Ambulatory pulse ox today does not indicate any need for oxygen with activity. Continue home hydrochlorothiazide for hypertension. Continue home venlafaxine for anxiety. Provided home isolation instructions. Advised to follow up with PCP Total Time Total Time Spent Total Time Spent (In Minutes): 45 Total Time Includes: Examination of the Patient, Discharge Planning and Medication Reconciliation Discharge Plan Discharge Items Patient Disposition: Home - Self-Care Reason For Visit: Cough, shortness of breath Discharge Diagnosis: Acute hypoxic respiratory failure COVID 19 pneumonia Activity: Resume your previous activity Non-emergency contact: Primary Care Provider Call non-emergency contact if: you have any medication questions Follow-up/Referrals: Tyrell Castañeda MD [Primary Care Provider] - Diet: Heart Healthy Addtl Attending Provider Instructions: Mrs Morales. You came to the hospital complaining of cough and shortness of breath. You were evaluated and found to have COVID 19 pneumonia. You were started on treatment and required oxygen for sometime. You were weaned off oxygen and your symptoms improved. There is no need for antibiotics at this point. You are being discharged home. Please ensure follow up with your Primary Doctor. Please adhere to home isolation instructions as we discussed. It was a pleasure taking care of you. Pending Studies at Discharge: No Stand-Alone Forms: My [facility] [place], Smoking Cessation Medications and DC Order Prescriptions: Continued venlafaxine 50 mg tablet 25 mg PO DAILY RF: 0 hydrochlorothiazide 25 mg tablet 25 mg PO DAILY RF: 0 ondansetron 4 mg tablet,disintegrating 4 mg PO Q6H PRN (Reason: Nausea) RF: 0 Discontinued doxycycline hyclate 100 mg capsule 100 mg PO BID RF: 0 dexamethasone 6 mg tablet 6 mg PO DAILY RF: 0 Discharge Orders: Discharge Order (Routine); Ordered 03/28/21 Ordered By: Toña Doyle Admission Data Admit Date/Time: 03/25/21 01:56 Attending Provider: Toña Doyle I. Admit Provider: Massimo Saldana Primary Care Provider: Tyrell Castañeda Other Providers: Massimo Saldana Other Interventions: Discharge Summary Assessment (RN) Last Done: 03/28/21 11:58
[2021-03-28] MEDS: REMDESIVIR 100 MG in SODIUM CHLORIDE 0.9% 230 ML IV SCH (12:16)
== END 2021-03-28 13:30 | disposition home or self-care (01) | DRG 177 ==
LOC: ED 20:30 → 2E 03-25 01:56